=== PATIENT | female | born 1960 | race African-American/Black ===

== ENCOUNTER 2019-08-09 13:03 | Emergency (ER) | payer OTHER ==
[~2019-08-09] VITALS: Ht 149.9 cm; Wt 72.6 kg
[2019-08-09 13:51] LABS: ABSOLUTE NEUTROPHILS 6.4 thou/uL (1.4-8.2); BASOPHILS 0.5 % (0.0-2.0); EOSINOPHILS 1.2 % (0.0-3.0); HEMATOCRIT 41.9 % (37.0-47.0); HEMOGLOBIN 14.2 gm/dL (12.0-15.0); LYMPHOCYTES 10.4 % (24.0-44.0); MCH 29.8 pg (26.0-34.0); MCHC 33.9 g/dL (28.0-37.0); MCV 87.9 fL (80.0-100.0); MONOCYTES 7.1 % (1.0-8.0); PLATELET COUNT 378 thou/uL (150-400); POLYS 80.8 % (36.0-66.0); RBC 4.77 mil/uL (4.20-5.00); WBC 7.9 thou/uL (4.0-11.0)
[2019-08-09 13:58] LABS: ANION GAP 9 mmol/L (7-16); BUN 12 mg/dL (7-18); CALCIUM 9.3 mg/dL (8.5-10.1); CHLORIDE 101 mmol/L (98-107); CO2 27 mmol/L (21-32); CREATININE 0.9 mg/dL (0.6-1.0); GLUCOSE 114 mg/dL (74-106); POTASSIUM 3.7 mmol/L (3.5-5.1); SODIUM 137 mmol/L (136-145)
[2019-08-09 14:12] LABS: TROPONIN-I <0.06 ng/mL (<0.06)
[2019-08-09 14:17] LABS: SGOT 66 U/L (15-37)
[2019-08-09 14:18] LABS: MAGNESIUM 1.7 mg/dL (1.8-2.4); SGPT 33 U/L (30-65)
[2019-08-09 14:19] LABS: ALBUMIN 3.2 g/dL (3.4-5.0); TOTAL PROTEIN 7.8 g/dL (6.4-8.2)
[2019-08-09 15:34] LABS: URINE BLOOD 3+ (Negative); URINE CLARITY CLEAR; URINE COLOR YELLOW; URINE GLUCOSE-RANDOM* NEGATIVE (Negative); URINE KETONES 1+ (Negative); URINE LEUKOCYTES-REFLEX NEGATIVE (Negative); URINE NITRITE-REFLEX NEGATIVE (Negative); URINE PROTEIN (DIPSTICK) 1+ (Negative); URINE SPECIFIC GRAVITY 1.025 (1.005-1.035)
[2019-08-09 15:35] LABS: ICTOTEST (BILI CONFIRMATORY) Negative (Negative); URINE BILIRUBIN NEGATIVE (Negative)
[2019-08-09 15:46] LABS: SQUAMOUS >10 Many /LPF (0-3)
[2019-08-09 15:47] LABS: BACTERIA-REFLEX >30 Many /HPF (None Seen); CASTS None Seen /LPF (None Seen); CRYSTALS None Seen /LPF (None Seen); URINE RBC 0-2 Rare /HPF (0-2); URINE WBC-REFLEX 0-5 Rare /HPF (0-5)
[2019-08-09 17:05] VITALS: BP 139/91
--- NOTE | 2019-08-10 07:52 | EKG ---
[place] [address] [address] [facility] [place] [address] ELECTROCARDIOGRAM REPORT Name: YRN PALOMINO Room #: DEP AN Lakhani#: [id number] ������������������ Admission: 08/09/19 ������������������ Attend Phys: Discharge: 08/09/19 ������������������ Date of : 60 Report #: [id number] ����������������������������������������������������������������� [id number] THIS REPORT FOR: //name// [facility] ED Test Date: 2019-08-09 Test Time: 13:37:55 Pat Name: YRN PALOMINO Department: Room: Gender: F Plasma Table Operator: : 1960 Requested By: Vince Arellano Order Number: [id number] MD: Jassi Mc Measurements Intervals [place] Rate: 77 P: 22 ID: 132 QRS: 52 QRSD: 75 T: 16 QT: 405 QTc: 459 Interpretive Statements Sinus rhythm No significant abnormality No previous ECG available for comparison Electronically Signed On 08-10-2019 7:52:21 CDT by Jassi Mc [email or web address] ��������������������������������������������� <ELECTRONICALLY SIGNED> ���������������������������������������� By: Jassi Mc MD, [facility] ��������������������������������������������� 08/10/19 [id number] Jassi Mc MD, FAC /EPI
== END 2019-08-09 17:10 | disposition home or self-care (01) ==
LOC: ER 13:03
PROVIDERS: Emergency Medicine
DX: R53.1 Weakness (principal); F20.9 Schizophrenia, unspecified

== ENCOUNTER 2020-01-28 18:01 | Emergency (ER) | payer OTHER ==
[~2020-01-28] VITALS: Ht 152.4 cm; Wt 61.2 kg
[2020-01-28 19:05] LABS: ABSOLUTE NEUTROPHILS 8.2 thou/uL (1.4-8.2); BASOPHILS 0.3 % (0.0-2.0); EOSINOPHILS 0.3 % (0.0-3.0); HEMATOCRIT 39.3 % (37.0-47.0); HEMOGLOBIN 13.3 gm/dL (12.0-15.0); LYMPHOCYTES 3.6 % (24.0-44.0); MCH 29.7 pg (26.0-34.0); MCHC 33.7 g/dL (28.0-37.0); MCV 88.1 fL (80.0-100.0); MONOCYTES 5.7 % (1.0-8.0); PLATELET COUNT 281 thou/uL (150-400); POLYS 90.1 % (36.0-66.0); RBC 4.46 mil/uL (4.20-5.00); RDW 14.2 % (10.5-14.5); WBC 9.1 thou/uL (4.0-11.0)
[2020-01-28] MEDS ORDERED: FLONASE 0.05%50 MCG NARES (19:05)
[2020-01-28] MEDS ORDERED: GABAPENTIN 100100 MG PO (19:07)
[2020-01-28] MEDS ORDERED: BENZTROPINE ME0.5 MG PO (19:08)
[2020-01-28] MEDS ORDERED: INGREZZA40 MG PO (19:08)
[2020-01-28] MEDS ORDERED: SINGULAIR 10 MG10 M1 PO (19:09)
[2020-01-28] MEDS ORDERED: FLUPHENAZINE H2.5 MG PO (19:09)
[2020-01-28] MEDS ORDERED: HALOPERIDOL10 MG PO (19:09)
[2020-01-28 19:10] LABS: CALCIUM 9.1 mg/dL (8.5-10.1); CREATININE 0.9 mg/dL (0.6-1.0); POTASSIUM 3.6 mmol/L (3.5-5.1)
[2020-01-28 19:16] LABS: ALBUMIN 3.4 g/dL (3.4-5.0); TOTAL BILIRUBIN 0.8 mg/dL (<0.1-1.0)
[2020-01-28 19:46] LABS: URINE BILIRUBIN NEGATIVE (Negative); URINE BLOOD 2+ (Negative); URINE CLARITY CLEAR; URINE COLOR YELLOW; URINE GLUCOSE-RANDOM* NEGATIVE (Negative); URINE KETONES NEGATIVE (Negative); URINE LEUKOCYTES-REFLEX NEGATIVE (Negative); URINE NITRITE-REFLEX NEGATIVE (Negative); URINE PROTEIN (DIPSTICK) NEGATIVE (Negative); URINE UROBILINOGEN 0.2 E.U./dl (0.2-1.0)
[2020-01-28 19:56] LABS: URINE RBC 0-2 Rare /HPF (0-2)
[2020-01-28 19:57] LABS: BACTERIA-REFLEX 1-9 Few /HPF (None Seen); CASTS None Seen /LPF (None Seen); CRYSTALS None Seen /LPF (None Seen); SQUAMOUS 0-3 Few /LPF (0-3); URINE WBC-REFLEX None Seen /HPF (0-5)
[2020-01-28 22:24] VITALS: BP 13/68
== END 2020-01-28 22:25 | disposition home or self-care (01) ==
LOC: ER 18:01
PROVIDERS: Physician Assistant
DX: R35.0 Frequency of micturition (principal)

== ENCOUNTER 2020-07-12 19:36 | Inpatient (IN) | payer OTHER ==
[~2020-07-12] VITALS: Ht 157.5 cm; Wt 83.8 kg
[~2020-07-12 19:36] MED LIST: BENZTROPINE ME0.5 MG PO; FLONASE 0.05%50 MCG NARES; FLUPHENAZINE H2.5 MG PO; GABAPENTIN 100100 MG PO; HALOPERIDOL10 MG PO; INGREZZA40 MG PO; SINGULAIR 10 MG10 M1 PO
[2020-07-12 20:02] VITALS: BP 116/77
[2020-07-12 20:22] LABS: ABSOLUTE NEUTROPHILS 10.6 thou/uL (1.4-8.2); BASOPHILS 0.3 % (0.0-2.0); HEMATOCRIT 40.5 % (37.0-47.0); HEMOGLOBIN 13.6 gm/dL (12.0-15.0); LYMPHOCYTES 2.6 % (24.0-44.0); MCH 28.6 pg (26.0-34.0); MCHC 33.6 g/dL (28.0-37.0); MCV 85.2 fL (80.0-100.0); MONOCYTES 4.1 % (1.0-8.0); PLATELET COUNT 240 thou/uL (150-400); RBC 4.75 mil/uL (4.20-5.00); RDW 14.7 % (10.5-14.5); WBC 11.4 thou/uL (4.0-11.0)
[2020-07-12 20:23] LABS: BE(vivo) -1.1 mmol/L (-2 to +3); HCO3 19.5 mmol/L (22.0-26.0); pH 7.539 (7.360-7.450); sO2 98.7 % (92.0-98.0)
[2020-07-12 20:24] LABS: PCO2 23.4 mmHg (35.0-45.0)
[2020-07-12 20:29] LABS: CALCIUM 8.5 mg/dL (8.5-10.1); CREATININE 1.1 mg/dL (0.6-1.0); POTASSIUM 3.4 mmol/L (3.5-5.1)
[2020-07-12 20:44] LABS: ALBUMIN 2.8 g/dL (3.4-5.0); DIRECT BILIRUBIN 0.3 mg/dL (<0.1-0.2); TOTAL BILIRUBIN 1.1 mg/dL (0.2-1.0); TOTAL PROTEIN 7.6 g/dL (6.4-8.2); TROPONIN-I 0.22 ng/mL (<0.06)
--- NOTE | 2020-07-12 21:55 | NUR ---
ATTEMPTED TO CALL [facility] WITH NO ANSWER. LEFT VM FOR GUARDIAN MICHAEL HILL AT [phone]. AFTER HOURS NUMBER PROVIDED IS A NON WORKING NUMBER.
[2020-07-13] VITALS (48 sets, daily range): BP systolic 80–133; BP diastolic 38–76
[2020-07-13 06:13] LABS: HEMATOCRIT 39.6 % (37.0-47.0); HEMOGLOBIN 13.6 gm/dL (12.0-15.0); MCH 29.7 pg (26.0-34.0); MCHC 34.3 g/dL (28.0-37.0); MCV 86.7 fL (80.0-100.0); RBC 4.57 mil/uL (4.20-5.00); RDW 14.7 % (10.5-14.5)
[2020-07-13 06:50] LABS: ALBUMIN 2.5 g/dL (3.4-5.0); CALCIUM 7.8 mg/dL (8.5-10.1); CREATININE 1.4 mg/dL (0.6-1.0); POTASSIUM 3.7 mmol/L (3.5-5.1); TOTAL BILIRUBIN 1.1 mg/dL (0.2-1.0); TOTAL PROTEIN 7.2 g/dL (6.4-8.2); TROPONIN-I 0.13 ng/mL (<0.06)
--- NOTE | 2020-07-13 08:02 | NUR ---
ADMITTED FROM ER TO ICU 236. PT LETHARGIC, RR 30'S REMAINS ON NRB 100%, O2SAT 96. FEBRILE. 101. LESS TACHYCARDIC AFTER FLUIDS INFUSING. UO-DARK YELLOW. MRSA SWAB SENT. ENHANCE PRECAUTIONS
--- NOTE | 2020-07-13 09:08 | EKG ---
[facility] [place] [address] ELECTROCARDIOGRAM REPORT Name: YRN PALOMINO Room #: 236-P ADM IN M.R.#: [id number] Admission: 07/12/20 Attend Phys: Jon Rodriguez MD Discharge: Date of : 60 Report #: [id number] THIS REPORT FOR: cc: Griffin Cardenas MD, Dennis R MD Lundgren,Jassi Cuellar MD [facility] ~ THIS REPORT FOR: //name// [facility] ED Test Date: 2020-07-12 Test Time: 19:55:09 Pat Name: YRN PALOMINO Department: Room: [facility] Gender: F Transitions Rn Care Coordinator: LIBIA : 1960 Requested By: Charity Yip Order Number: [id number] MD: Jassi Mc Measurements Intervals [place] Rate: 125 P: 37 AK: 108 QRS: 62 QRSD: 78 T: -2 QT: 350 QTc: 505 Interpretive Statements Sinus tachycardia Poor R wave progression Borderline prolonged QT interval Baseline wander in lead(s) II,III,aVF Compared to ECG 08/09/2019 13:37:55 Heart rate has increased Electronically Signed On 07-13-2020 9:08:05 CDT by Jassi Mc [email or web address] <ELECTRONICALLY SIGNED> By: Jassi Mc MD, FACC 07/13/20907 54 [id number] Jassi Mc MD, FACC /EPI
--- NOTE | 2020-07-13 09:44 | NUR ---
cm unable to visit with pt rt on nrb and SOA. cm spoke with susanna parkinson with [facility] office. consent obtained to treat. she is from [facility], [facility]. positive for covid. has meals, assistance with medication and assist with adl's when needed. will cont following as needed for dc needs. cm passed on information to bedside nurse.
[2020-07-13 12:00] LABS: URINE BLOOD 3+ (Negative); URINE CLARITY CLOUDY; URINE COLOR YELLOW; URINE GLUCOSE-RANDOM* NEGATIVE (Negative); URINE KETONES 1+ (Negative); URINE LEUKOCYTES 1+ (Negative); URINE NITRITE NEGATIVE (Negative); URINE PROTEIN (DIPSTICK) 3+ (Negative); URINE SPECIFIC GRAVITY >= 1.030 (1.005-1.035); URINE UROBILINOGEN 0.2 E.U./dl (0.2-1.0)
[2020-07-13 12:02] LABS: ICTOTEST (BILI CONFIRMATORY) Negative (Negative); URINE BILIRUBIN NEGATIVE (Negative)
[2020-07-13 12:10] LABS: CRYSTALS None Seen /LPF (None Seen); FINE GRANULAR CASTS 4-10 Moderate /LPF (None Seen); SQUAMOUS 0-3 Few /LPF (0-3)
[2020-07-13 12:11] LABS: URINE WBC >25 Many /HPF (0-5)
[2020-07-13 12:12] LABS: BACTERIA >30 Many /HPF (None Seen); URINE RBC >20 Many /HPF (0-2)
--- NOTE | 2020-07-13 13:50 | NUR ---
PATIENT IS MEDICAL NECESSITY PER Cristino JENKINS. PICC LINE ORDERED SPECIFICALLY BY DR. GREGORIO. TRIPLE LUMEN PICC PLACED RUE BASILIC VEIN. ONE STICK AND NO COMPLICATIONS. PATIENT TOLERATED WELL. PICC LENGTH =36CM. V.O.=18%, EXTERNAL =2CM. PICC TIP VERIFIED DISTAL SVC PER CHEST XRAY.
[2020-07-13 15:52] LABS: BE(vivo) -9.7 mmol/L (-2 to +3); HCO3 16.2 mmol/L (22.0-26.0); PCO2 35.4 mmHg (35.0-45.0); PO2 226.1 mmHg (80.0-100.0); pH 7.278 (7.360-7.450); sO2 99.4 % (92.0-98.0)
--- NOTE | 2020-07-13 18:33 | NUR ---
ASSUMED CARE AT 0700. ASSESSMENTS PER CHART. PT CONTINUED WITH LABORED BREATHING AND RESP RATE IN THE 30'S- 40'S UNTIL DR GREGORIO INTUBATED. PT WAS INTUBATED AT 1408. 100CC DIPRIVAN GIVEN FOR SEDATION PER DR GREGORIO V.O. AT BEDSIDE. 7.5 ET TUBE PLACED, 23 AT THE TEETH. OG PLACED AT 55 AT THE TEETH TO LIS. PT SCREENED POSITIVE FOR SEPSIS THIS AFTERNOON WELL WITH POOR URINE OUTPUT. DR SCHROEDER NOTIFIED, DR GREGORIO UPDATED WELL WITH THE ABG RESULTS AND STATED TO START SEPSIS PROTOCOL. WILL CLARIFY FOR FURTHER ORDERS. PT SEDATED ON PROPOFOL, AND LEVO GTT INFUSING FOR PRESSURE SUPPORT. CONSENT OBTAINED FRO ARTIE PAN, PUBLIC JUNIOR PROJECT MANAGER, TO GIVE CONVALECENT PLASMA WELL.
[2020-07-14] VITALS (65 sets, daily range): BP systolic 92–141; BP diastolic 51–98
[2020-07-14 04:49] LABS: BE(vivo) -8.1 mmol/L (-2 to +3); HCO3 17.8 mmol/L (22.0-26.0); PCO2 38.3 mmHg (35.0-45.0); PO2 164.1 mmHg (80.0-100.0); sO2 98.9 % (92.0-98.0)
[2020-07-14 04:50] LABS: pH 7.286 (7.360-7.450)
[2020-07-14 05:36] LABS: HEMATOCRIT 36.1 % (37.0-47.0); HEMOGLOBIN 11.9 gm/dL (12.0-15.0); MCHC 33.1 g/dL (28.0-37.0); MCV 87.8 fL (80.0-100.0); RBC 4.11 mil/uL (4.20-5.00); RDW 15.1 % (10.5-14.5); WBC 15.9 thou/uL (4.0-11.0)
[2020-07-14 05:53] LABS: CREATININE 0.8 mg/dL (0.6-1.0); POTASSIUM 3.4 mmol/L (3.5-5.1)
[2020-07-14 05:57] LABS: CALCIUM 5.9 mg/dL (8.5-10.1)
--- NOTE | 2020-07-14 07:49 | NUR ---
ORDERS FOR EVAL AND TREAT. Pt NOW INTUBATED. WILL HOLD P.T. EVAL AND RESUME WHEN REORDERED WHEN Pt IS APPROPRIATE FOR P.T.
--- NOTE | 2020-07-14 10:27 | NUR ---
Nutrition: REC initiate Vital HP at to reach 40 mL/hr goal rate with current propofol demands.
--- NOTE | 2020-07-14 13:34 | NUR ---
chart review. pt remains on vent, tube feed for nutritional support. covid +. no anticipated dc. will cont following as need for dc needs.
--- NOTE | 2020-07-14 20:49 | NUR ---
ASSUMED CARE AT 0700. PT WAS ON 70% FIO2 AT BEGINNING OF SHIFT AND WAS TURNED UP TO 75% FOR SPO2 OF 88%. PT WENT UP TO 95% FIO2. PT THEN LATER IN SHIFT SPO2 WAS 88% AGAIN AND WAS SUCTIONED WITH NO RAISE IN SPO2. RT WAS CALLED AND THEY INCREASED FIO2 TO 85%. PT REMAINED ABOVE 95% SPO2 REMAINDER OF SHIFT. PT WAS GIVEN CONVALESCENT PLASMA TODAY. PT DID NOT HAVE ANY ADVERSE REACTIONS TO PLASMA GIVEN THIS SHIFT.
[2020-07-15] VITALS (72 sets, daily range): BP systolic 87–159; BP diastolic 47–98
--- NOTE | 2020-07-15 04:00 | NUR ---
Pt. started having increased respiratory rate in the 40's. Heart rate tachey in the 140's. O2 saturation decreased into the 60's. Renetta SILVA called and notified and she came to see the pt. order for one time lasix push (see cpoe). Pt. was also suctioned and RT also in the room. Charge nurse also in the room. Pt. did recover after ivp lasix with heart rate at 96,02 saturation at 88% with intubation. Respiratory rate also decreased.
[2020-07-15 09:21] LABS: ABSOLUTE NEUTROPHILS 11.2 thou/uL (1.4-8.2); BASOPHILS 0.2 % (0.0-2.0); HEMOGLOBIN 12.5 gm/dL (12.0-15.0); MCH 28.9 pg (26.0-34.0); MCV 87.6 fL (80.0-100.0); MONOCYTES 3.4 % (1.0-8.0); PLATELET COUNT 228 thou/uL (150-400); POLYS 92.4 % (36.0-66.0); RBC 4.34 mil/uL (4.20-5.00); RDW 15.7 % (10.5-14.5); WBC 12.2 thou/uL (4.0-11.0)
[2020-07-15 09:29] LABS: CALCIUM 6.7 mg/dL (8.5-10.1); CREATININE 0.8 mg/dL (0.6-1.0)
--- NOTE | 2020-07-15 19:29 | NUR ---
assume pt care at 0700, assessments and vss documented per protocol. No sedation vacation today, pt does not fullfil criteria. pt on 100% fio2 at start of shift, now at 90% fio2, yakov o2 sats in the 90s. DR. ARAMBULA AND DR GREGORIO ROUNDED THIS SHIFT ORDERS RECIEVED AND EXCECUTED. WILL CONT. TO MONITOR
[2020-07-16] VITALS (83 sets, daily range): BP systolic 74–152; BP diastolic 38–86
[2020-07-16 04:54] LABS: CALCIUM 6.8 mg/dL (8.5-10.1); CREATININE 0.8 mg/dL (0.6-1.0); POTASSIUM 3.7 mmol/L (3.5-5.1)
--- NOTE | 2020-07-16 07:57 | NUR ---
ASSUMED PT CARE AT 1900, PT IS MODERATELY SEDATED, SR ON THE MONITOR, PT REMAINED ON 80% FIO2 FOR THE MAJORITY OF THE NIGHT TILL THIS MORNING AROUND 0600, PT O2SATS WENT DOWN TO 69%, PT WAS COUGHING AND SOUNDED CRACKLY UPON ASESSMENT, RT CALLED AND [employer] AUDITOR NOTIFIED, ORDERS RECEIVED OF LASIX 40MG, LASIX, MORHINE AND VERSED GIVEN, PROPOFOL MAXED TO 80 D/T PT COUGHING, ADEQUATE AMOUNT OF URINE DRAINING FROM DREW, IVF TURNED OFF, PT SATS NW STABLE, REMAINS ON LEVOPHED AND PROPOFOL, VS REMAINED STABLE, PASSED ON REPORT TO DAY NURSE
--- NOTE | 2020-07-16 15:55 | NUR ---
ASSUMED CARE @ 0700 07/16/20, PT ASSESSMENTS AND VSS COMPLETE PER ICU PROTOCOL. DR CRUZ AND DR GREGORIO HERE IN THE AM TO ROUND, NO NEW ORDERS RECIEVED. DR GREGORIO UPDATED ON FACT THAT PT IS ON PRESSURE SUPPORT OF 18, SATS MAINTAINING IN THE 90'S, NO NEW ORDERS RECIEVED AT THIS TIME.
[2020-07-17] VITALS (69 sets, daily range): BP systolic 107–156; BP diastolic 51–84
[2020-07-17 06:40] LABS: HEMATOCRIT 35.7 % (37.0-47.0); HEMOGLOBIN 11.9 gm/dL (12.0-15.0); MCH 29.3 pg (26.0-34.0); MCHC 33.4 g/dL (28.0-37.0); MCV 87.6 fL (80.0-100.0); RBC 4.08 mil/uL (4.20-5.00); RDW 15.6 % (10.5-14.5); WBC 10.9 thou/uL (4.0-11.0)
[2020-07-17 06:49] LABS: CALCIUM 6.7 mg/dL (8.5-10.1); CREATININE 0.7 mg/dL (0.6-1.0); POTASSIUM 3.8 mmol/L (3.5-5.1)
--- NOTE | 2020-07-17 07:47 | NUR ---
VENT SETTINGS CHANGED DURING THE SHIFT PER RT. CURRENTLY ON AC, RR 16, PEEP 18,TV 450, FIO2 70%. PT SEDATED ON PROPOFOL, DOES NOT TOLERATE LIGHT SEDATION, OR REPOSITIONING/TURNS. LOW TEMP THIS AM, RHIANNON JULIEN APPLIED AT 0500, REPORTED THIS OFF TO ONCOMING RN.
--- NOTE | 2020-07-17 09:33 | NUR ---
Nutrition: NPO day 5 in ICU. REC initiate tube feeds of Vital HP at 40 mL/hr goal rate with current propofol demands if POC aggressive.
--- NOTE | 2020-07-17 11:34 | NUR ---
chart review. pt remains on vent, tube feed for nutritional support. per pulmonary notes, not ready to wean yet. updates to be sent to [facility] and pa office. will cont following as needed for dc needs.
--- NOTE | 2020-07-17 15:01 | NUR ---
FAXED CLINICAL UPDATE TO [facility] RECEIVED CONFIRMATION AND LEFT MSG WITH GOOD IN ADM. ALSO FAXED UPDATE TO PT'S LEGAL GUARDIAN AT THE [facility] PA'S OFFICE RECEIVED CONFIRMATION. DP TO FOLLOW.
--- NOTE | 2020-07-17 19:40 | NUR ---
ASSUMED CARE AT 0700. BEAR HUGGER IN PLACE DUE TO HYPOTHERMIA. .PATIENT ADVOCATE UNABLE TO BE REACHED BY PALLIATIVE. DIETARY RECOMMENDED VITAL HP @ 40 ML/HR IF NEEDED. PEEP REDUCED FROM 18 TO 14 IN THE MORNING. TOELRATED WELL BY PATIENT. UOP WAS 1775. NO BM. PROPOFOL @ 50 MCG/KG/MIN, LEVOPHED @ 4 MCG/KG/MIN. DR. GARCIA STATED HE IS ATTEMPTING TO CONTACT POA TO CHANGE CODE STATUS TO DNR. VENTILATOR SETTINGS UNCHANGED. NOT PROGRESSING TOWARDS PLAN OF CARE.
[2020-07-18] VITALS (78 sets, daily range): BP systolic 95–128; BP diastolic 49–68
--- NOTE | 2020-07-18 01:11 | NUR ---
PT MAINTANING VITALS WNL SEDATED ON PROPOFOL, VENT SETTINGS UNCHANGED, LEVOPHED AT 2MCG/MIN FOR BP SUPPORT. PT DESATS QUICKLY WHEN STIMULATED, COUGHS AND GAGS, DOES NOT TOLERATE MILD SEDATION.
[2020-07-18 05:01] LABS: HEMATOCRIT 32.9 % (37.0-47.0); HEMOGLOBIN 10.9 gm/dL (12.0-15.0); MCH 29.2 pg (26.0-34.0); MCHC 33.3 g/dL (28.0-37.0); MCV 87.8 fL (80.0-100.0); RBC 3.75 mil/uL (4.20-5.00); RDW 15.8 % (10.5-14.5); WBC 6.5 thou/uL (4.0-11.0)
[2020-07-18 05:19] LABS: CALCIUM 6.6 mg/dL (8.5-10.1); CREATININE 0.7 mg/dL (0.6-1.0); POTASSIUM 3.8 mmol/L (3.5-5.1)
--- NOTE | 2020-07-18 10:08 | NUR ---
per phone call from susanna parkinson with [facility]. forms for dnr request have been filled out and being faxed back to [facility]. cm called and notified bedside nurse. fax forms giving to bedside nurse.
--- NOTE | 2020-07-18 16:11 | NUR ---
ASSUMED CARE AT 0700. PATIENT ADVOCATE CONTACTED BY PALLIATIVE AND DNR ORDER WAS PLACED. FENTANYL STARTED AT 1000 @ 25 MCG/HR. LEVOPHED TITRATED DOWN TO 0 BY 1425. PATIENT TOLERATED IT WELL EVIDENCED BY MAP CONSISTENLY GREATER THAN 65. PROPOFOL @ 60. VENTILATOR SETTINGS UNCHANGED. URINE APPEARS DARKER AND MORE BROWN. ANASARCA OBSERVED ON RT HAND IN ADDITION TO BRUISING. AREA OF BRUISING HAS NOT INCREASED IN SIZE HOWEVER. PATIENT NOT PROGRESSING TOWARDS THE PLAN OF CARE.
[2020-07-19] VITALS (30 sets, daily range): BP systolic 92–113; BP diastolic 54–70
--- NOTE | 2020-07-19 07:33 | NUR ---
PT HAVING MULTIPLE EPISODES OF DESATING. FI02 UP TO 100% THIS AM.
[2020-07-19 08:51] LABS: CREATININE 0.5 mg/dL (0.6-1.0)
[2020-07-19 08:52] LABS: GLUCOSE 85.2 mg/dL (74-106)
[2020-07-19 08:55] LABS: CALCIUM 5.2 mg/dL (8.5-10.1); POTASSIUM 2.9 mmol/L (3.5-5.1)
--- NOTE | 2020-07-19 12:48 | NUR ---
susanna with [facility] office called, have located ralph atkins [phone], she is a nurse. she can have verbal communication and purvi and how she is doing, no written forms of communication"/susanna. cm passed on information to bedside nurse.
--- NOTE | 2020-07-19 17:57 | NUR ---
ASSUMED CARE OF PT AT SHIFT CHANGE. ASSESSMENTS CHARTED. MEDS GIVEN PER JAN. PT REMAIN SEDATED, D/T VENT. AJITH INCREASED TO 18, FI02 REDUCED TO 90%. BP REMAINED STABLE WITH NO NEED FOR LEVO. TUBE FEEDING INITIATED, BUT PUT ON HOLD AFTER APPROX 5 HOURS D/T HIGH RESIDUAL, PUT BACK 50ML OF FEED. BLOOD NOTED DURING SUCTIONING. URINE IS BLOOD TINGED/RAVIN. WILL CONTINUE TO MONITOR AND FOLLOW POC.
[2020-07-19 20:54] LABS: ALBUMIN 1.5 g/dL (3.4-5.0); CALCIUM 7.1 mg/dL (8.5-10.1); CREATININE 0.5 mg/dL (0.6-1.0); POTASSIUM 4.4 mmol/L (3.5-5.1)
[2020-07-20] VITALS (69 sets, daily range): BP systolic 94–129; BP diastolic 52–78
[2020-07-20 06:19] LABS: HEMATOCRIT 28.1 % (37.0-47.0); HEMOGLOBIN 9.6 gm/dL (12.0-15.0); MCH 30.5 pg (26.0-34.0); MCHC 34.3 g/dL (28.0-37.0); RBC 3.15 mil/uL (4.20-5.00); WBC 5.4 thou/uL (4.0-11.0)
[2020-07-20 06:35] LABS: CALCIUM 6.3 mg/dL (8.5-10.1); CREATININE 0.6 mg/dL (0.6-1.0)
[2020-07-20 06:56] LABS: POTASSIUM 3.9 mmol/L (3.5-5.1)
--- NOTE | 2020-07-20 12:33 | NUR ---
dr brewer reached out and wanted to know family # rt family calling nursing staff daily and no number, possible will need to palliative extubate. cm let dr know number that [facility] office provided was in cm note from . dr brewer will reach out to family. will cont following as needed for dc needs.
[2020-07-21] VITALS (93 sets, daily range): BP systolic 88–166; BP diastolic 47–116
--- NOTE | 2020-07-21 00:49 | NUR ---
SEDATION VACATION FROM PROPOFOL AND FENTANYL GTT FOR 13 MINUTES. PT HAS POSITIVE COUGH AND GAG, DOESNT OPEN HER EYES & FACIAL GRIMACES TO PAIN. PT SATS OF 96% ON 100% FI02. BLOOD TINGED URINE NOTICED AT 2130. WILL CONTINUE TO MONITOR
--- NOTE | 2020-07-21 13:54 | NUR ---
pt remains intubated, tf for nutritional support. per notes not ready to wean, possible will palliative in the future , to contact [facility] office for susanna parkinson or after hours # if needed over the weekend. mariaa spoke with susanna and provided verbal update on pt, " if needed palliative today will ok that but need to call. she wont be going any where over the weekend so will talk friday"/susanna.
--- NOTE | 2020-07-21 17:14 | NUR ---
PT OPENS EYES, COUGHS WHILE SUCTIONING OR TURNING-DESATURATIONS INTO THE 80S RECOVERS SLOWLY, INLINE SUCTION- BLOODY THICK SPUTUM. MODERATE VAGINAL BLEEDING WITH SMALL CLOTS, REPORTED TO DR ALCARAZ. VITAL SIGNS STABLE, TOLERATING CURRENT SEDATION SETTINGS.
[2020-07-22] VITALS (41 sets, daily range): BP systolic 88–140; BP diastolic 46–79
--- NOTE | 2020-07-22 06:49 | NUR ---
PATIENT HAS FREQUENT DE-SAT EPISODES; DROPS TO 70s-80s. PATIENT TAKES AN EXTENDED TIME TO RECOVER AND SATS RETURN TO THE 90s. PUBLISHING MANAGER AWARE. SR TO ST ON MONITOR. 80s TO 110s. AFEBRILE. UNABLE TO KEEP SATS ABOVE 70% SINCE 0400. PUBLISHING MANAGER HAS ADJUSTED VENT SETTINGS. FIO2 INCREASED TO 100%. PEEP INCREASED TO 20. TOTAL URINE OUTPUT OVERNIGHT WAS 550 CC.
--- NOTE | 2020-07-22 07:46 | NUR ---
Assumed care at 0700, assessment and vital signs completed per ICU protocol. Dr. Haynes paged and notified of oxygen demands of 100% and PEEP of 20, pt O2 sats in the 70's and HR in the 120's-130's. Dr. Haynes wants to work towards palliative extubation today. RN instructed to page and notify Dr. Fontaine. Dr. Fontaine paged at this time, RN awaiting call back.
== END 2020-07-22 13:23 | DRG 870 ==
LOC: ER 19:36 → ICU 21:54 → EROBS 21:54 → ICU 07-13 01:42
PROVIDERS: Emergency Medicine; Internal Medicine Pulmonary Disease; Nurse Practitioner Family; ADMIT Hospitalist; ATTEND Hospitalist
PROC: 5A1955Z Respiratory Ventilation, Greater than 96 Consecutive Hours (ICD-10-PCS; principal; 2020-07-13)
PROC: B548ZZA Ultrasonography of Superior Vena Cava, Guidance (ICD-10-PCS; principal; 2020-07-13)
PROC: 02HV33Z Insertion of Infusion Device into Superior Vena Cava, Percutaneous Approach (ICD-10-PCS; principal; 2020-07-13)
PROC: 0BH17EZ Insertion of Endotracheal Airway into Trachea, Via Natural or Artificial Opening (ICD-10-PCS; principal; 2020-07-13)
PROC: XW13325 Transfusion of Convalescent Plasma (Nonautologous) into Peripheral Vein, Percutaneous Approach, New Technology Group 5 (ICD-10-PCS; 2020-07-14)
DX: A41.89 Other specified sepsis (principal); U07.1 COVID-19; J96.01 Acute respiratory failure with hypoxia; G92 Toxic encephalopathy; J12.89 Other viral pneumonia; R65.21 Severe sepsis with septic shock; E43 Unspecified severe protein-calorie malnutrition; I21.4 Non-ST elevation (NSTEMI) myocardial infarction; N17.9 Acute kidney failure, unspecified; N39.0 Urinary tract infection, site not specified; F20.9 Schizophrenia, unspecified; R79.89 Other specified abnormal findings of blood chemistry; E87.6 Hypokalemia; B95.3 Streptococcus pneumoniae as the cause of diseases classified elsewhere; E11.9 Type 2 diabetes mellitus without complications; F03.90 Unspecified dementia, unspecified severity, without behavioral disturbance, psychotic disturbance, mood disturbance, and anxiety; I25.10 Atherosclerotic heart disease of native coronary artery without angina pectoris; Z51.5 Encounter for palliative care; Z66 Do not resuscitate; Z79.899 Other long term (current) drug therapy; Z68.33 Body mass index [BMI] 33.0-33.9, adult
CPT/HCPCS: 10078; 27000; 85076